=== PATIENT | female | born 1970 | race Caucasian/White ===

== ENCOUNTER 2018-08-07 16:11 | Emergency (ER) | payer OTHER ==
[2018-08-07] MEDS ORDERED: LIDOCAINE HCL 1% PF 50MG/5ML AMP (IM/SUTURE/PAIN CLINIC) IJ ONE (16:33)
[2018-08-07] MEDS ORDERED: cefTRIAXone SODIUM 1 GM INJ IM ONE (16:33)
[2018-08-07] MEDS ORDERED: methylPREDNISolone SOD SUCC 125 MG/2 ML VIAL IM ONE (16:33)
[2018-08-07 16:36] VITALS: BP 172/72
--- NOTE | 2018-08-07 16:37 | ED Physician Documentation ---
Upper Respiratory Symptoms - HISTORIAN Historian: patient - HPI Stated Complaint: cough, congestion Chief Complaint: Cough/ Upper Respiratory Onset: days ago (7) Duration: constant Context: denies: recent foreign travel Associated Symptoms: fever, chills, runny nose, sinus pain, sinus drainage, productive cough, hurts to breathe Worsened by Deep Breath: Yes - ROS CONST/EYES: denies: weakness CVS/RESP: denies: chest pain, shortness of breath GI/: vomiting, nausea NEURO/PSYCH: denies: dizziness MS/SKIN: denies: muscle aches - PAST HX Lung Disease: asthma PE Risk Factors: hypertension Surgeries/Procedures: none Allergies/Adverse Reactions: Allergies Allergy/AdvReac Type Severity Reaction Status Date / Time No Known Drug Allergies Allergy Verified 08/07/18 16:28 Home Medications: Ambulatory Orders Medication Instructions Recorded Lisinopril 10 mg PO BID u2 12/21/14 Citalopram Hydrobromide 10 mg PO D 08/07/18 [Citalopram HBr] Diltiazem HCl [Cardizem] 120 mg PO D 08/07/18 - SOCIAL HX Smoking History: non-smoker Alcohol Use: none Drug Use: none - FAMILY HX Family History: none - VITAL SIGNS Vital Signs: Vital Signs Temp Pulse Resp BP Pulse Ox 98.3 F 99 H 19 172/72 98 08/07/18 16:31 08/07/18 16:31 08/07/18 16:31 08/07/18 16:31 08/07/18 16:31 - REVIEWED ASSESSMENTS Nursing Assessment Reviewed: Yes Vitals Reviewed: Yes ED Results Lab/Radiology - Orders Orders: ED Orders Category Date Time Status Lidocaine 1% 5ml(IM or SUTURE) [Xylocaine] Med 08/07/18 16:33 Once 5 mg IJ NOW ONE cefTRIAXone SODIUM [Rocephin] Med 08/07/18 16:33 Once 1 gm IM NOW ONE methylPREDNISolone SOD SUCC [Solu-MEDROL] Med 08/07/18 16:33 Once 125 mg IM NOW ONE Upper Respiratory Symptoms - EXAM General Appearance: no acute distress, alert EENT: PERRL, ear nml, pain over sinuses, pharynx nml Neck: supple Respiratory: no resp. distress, breath sounds nml. No: respiratory distress Abdomen: non-tender, nml bowel sounds CVS: reg rate & rhythm, heart sounds normal Skin: color nml, no rash, warm,dry Extremities: no edema Neuro/Psych: oriented x3, mood/affect nml Discharge Clincal Impression: Upper respiratory infection, acute Referrals: Genesis Miguel, KRISTALN [Primary Care Provider] - 2 Days Additional Instructions: 1. Tylenol and/or Ibuprofen as needed for fever or pain. You may take these medications together at the same time for better pain control. 2. Add a daily antihistamine such as Claritin, Zyrtec, Xyxal, Allergra. Avoid taking the D version of these medications as they contain sudafed and will increase your blood pressure. Daily nasal irrigation is also helpful. 3. Take Mucinex or Robutussin (both contain the same ingredient) to help with mucous thinning allowing you to clear your mucous easier. While taking these medications you must drink at least 64 ounces of water daily. 4. Use a cool mist humidifier with sleep 5. Follow up with PCP within 3 days 6. Return to the ED with fever >102.0, difficulty breathing, chest pain or any new or worsening symptoms. Condition: Stable Disposition: 01 HOME, SELF-CARE Decision to Admit: NO Date of Decison to Admit: 08/07/18 Decision Time: 16:40
[2018-08-07] MEDS ORDERED: LIDOCAINE HCL 1% PF 20MG/2ML AMP IJ ONE (16:38)
== END 2018-08-07 16:53 | disposition home or self-care (01) ==
LOC: ED 16:11
DX: J06.9 Acute upper respiratory infection, unspecified (principal)
CPT/HCPCS: 96372; 99282; 99284; J0696; J2930